=== PATIENT | female | born 1970 | race Caucasian/White ===

== ENCOUNTER 2025-01-18 08:45 | Emergency (ER) | payer OTHER, SELFPAY ==
[2025-01-18] VITALS (7 sets, daily range): BP systolic 107–134; BP diastolic 64–84; BMI 25.1
[2025-01-18] MEDS: NSS 1000 IV (09:21)
[2025-01-18] MEDS: MOTRIN 600 MG PO (09:32)
[2025-01-18] MEDS: TYLENOL 1000 MG PO (09:32)
[2025-01-18 09:38] LABS: % Basophils 0.3 % (0-2); % Immature Granulocytes 0.4 % (0-0.5); % Monocytes 3.9 % (1.7-9.3); % Neutrophils 88.4 % (42.2-75.2); Absolute Lymphocytes 0.6 10^3/uL (1.2-3.4); Absolute Monocytes 0.3 10^3/uL (0.1-0.6); Hematocrit 34.5 % (37.0-47.0); Hemoglobin 11.2 g/dL (12.0-16.0); Mean Corp Hgb Conc. 32.5 g/dL (33.0-37.0); Mean Corpuscular Volume 80.2 fL (81.0-99.0); Mean Platelet Volume 9.4 fL (7.4-10.4); Nucleated Red Blood Cells % 0 %; Platelet Count 198 10^3/uL (130-400); Red Cell Dist. Width 12.9 % (11.5-14.5); White Blood Cell Count 7.9 10^3/uL (4.8-10.8)
[2025-01-18 09:42] LABS: Urine Albumin 1+ (Neg - Trace); Urine Bilirubin Negative (Negative); Urine Character Clear (Clear); Urine Color Yellow; Urine Glucose Negative (Negative); Urine Ketone Negative (Negative); Urine Leukocyte 1+ (Negative); Urine Nitrite Negative (Negative); Urine Occult Blood 4+ (Negative); Urine Specific Gravity 1.015 (<1.030); Urine Urobilinogen Negative (Neg - 1+)
[2025-01-18 09:54] LABS: Lactic Acid 1.4 mmol/L (0.7-2.0); Urine Bacteria Few (Negative)
[2025-01-18 09:55] LABS: COVID-19 Antigen Negative (Negative)
[2025-01-18 09:56] LABS: ALT (SGPT) 26 U/L (0-35); AST (SGOT) 33 U/L (14-36); Albumin 4.5 g/dl (3.5-5.0); Alkaline Phosphatase 87 U/L (38-126); Blood Urea Nitrogen 12 mg/dl (7-17); Calcium 9.1 mg/dl (8.4-10.2); Carbon Dioxide 24 mmol/L (22-30); Chloride 105 mmol/L (98-107); Estimated Creatinine Clearance 69 ml/min; Glucose 146 mg/dl (70-99); Potassium 4.1 mmol/L (3.5-5.1); Sodium 137 mmol/L (135-145); Total Bilirubin 0.5 mg/dl (0.2-1.3); Total Protein 7.2 g/dl (6.3-8.2); eGFR > 60.00
--- NOTE | 2025-01-18 11:15 | ED.GENMED ---
History of Present Illness
<Evans Naranjo PA-C - Last Filed: 01/18/25 14:44>
General
Chief Complaint: Fever
Time Seen by Provider: 01/18/25 09:03
History of Present Illness
History of Present Illness:
54-year-old female presents the emergency department for evaluation of fever, coughing, and lower abdominal cramping after a uterine ablation procedure that was performed 3 days ago. Fevers began the day following the procedure. She denies any
shortness of breath, URI symptoms, or vaginal purulent discharge. Denies dysuria or hematuria. Has clear community vaginal discharge that is expected after this procedure.
Review of Systems
<Evans Naranjo PA-C - Last Filed: 01/18/25 14:44>
Review of Systems
Allergies reviewed?: Yes
All Other Systems: ROS reviewed and negative except as documented in HPI and ROS
Phy Exam
<Evans Naranjo PA-C - Last Filed: 01/18/25 14:44>
Physical Exam
Physical Exam:
GEN: Well appearing, NAD, WDWN
Eyes: PERRLA, EOMs intact, no scleral icterus
HENT: NCAT, oral mucosa moist, no JVD, no cervical adenopathy.
Lungs: CTAB, no wheezes, rales, rhonchi, normal chest wall excursion
Cardiac: Tachycardic, regular, no M/R/G, no peripheral edema. Radial pulses 2+ bilat
Abdomen: S, NT, ND, NABS, no masses or hepatosplenomegaly
Neuro: AO x 3, no focal deficits to BUE/BLE, normal sensation throughout
MSK: No gross deformity or ecchymosis. No edema. No digital clubbing
Skin: No rashes, petechiae. Normal color, no pallor or jaundice.
Psych: Calm, cooperative, proper hygiene
Sepsis
<Evans Naranjo PA-C - Last Filed: 01/18/25 14:44>
Sepsis Screening
Sepsis Assessment: Sepsis Ruled Out
Sepsis Screen
Sepsis Screen: Sepsis Ruled Out
Date: 01/18/25
Time: 14:44
<Pietro Pardo PA-C - Last Filed: 01/21/25 08:06>
Sepsis Screen
Sepsis Screen: Sepsis Ruled Out
Date: 01/21/25
Time: 08:05
Course
<Evans Naranjo PA-C - Last Filed: 01/18/25 14:44>
Orders/Labs/Results
Orders:
Orders
01/18/25 09:07
0.9% Sodium Chloride 1000 ml [Nss] 1,000 ml IV BOLUS
01/18/25 09:22
COVID-19 Antigen Urgent
Source: Nasal Swab
Complete Blood Count/With Diff Urgent
Comprehensive Metabolic Panel Urgent
Lactic Acid Q4H
Comment: CANCEL 2nd LACTIC ACID IF 1st LACTIC ACID IS LESS THAN 2
Urinalysis Reflex To Culture Urgent
Date Specimen was Collected: 01/18/25
Time Specimen was Collected: 09:19
Urine Microscopic Reflex Cult Urgent
Blood Culture Q30M
STEVE Source: Blood/Venous
Specimen Description:
Influenza A+B Rapid Molecular Urgent
STEVE Source: Nasal Swab
Specimen Description:
Urine Culture Urgent
STEVE Source: U
Specimen Description:
Date Specimen was Collected: 01/18/25
Time Specimen was Collected: 09:19
01/18/25 09:27
Acetaminophen [Tylenol] 1,000 mg PO NOW STA
Ibuprofen [Motrin] 600 mg PO NOW STA
01/18/25 10:01
CR Chest - 2 Views Urgent
Comment:
Reason For Exam: fever
01/18/25 10:39
US Pelvis Only (non-obstetric) Urgent
Comment:
Reason For Exam: pelvic pain/fever after uterine ablation
01/18/25 14:45
Add On - Microbiology Urgent
Tests Added?: urine culture
Abnormal Lab Results
01/18/25
09:22
Hgb 11.2 L g/dL
(12.0-16.0)
Hct 34.5 L %
(37.0-47.0)
MCV 80.2 L fL
(81.0-99.0)
MCH 26.0 L pg
(27.0-31.0)
MCHC 32.5 L g/dL
(33.0-37.0)
Absolute Neuts (auto) 7.0 H 10^3/uL
(1.4-6.5)
Absolute Lymphs (auto) 0.6 L 10^3/uL
(1.2-3.4)
Neutrophils % 88.4 H %
(42.2-75.2)
Lymphocytes % 7.0 L %
(20.5-51.1)
Glucose 146 H mg/dl
(70-99)
Ur Occult Blood Reflex 4+ A
(Negative)
Leukocyte Esterase Rfl 1+ A
(Negative)
Urine RBC 11-15 A /HPF
(0-2)
Urine Bacteria (Reflex) Few A
(Negative)
Urine Albumin (Reflex) 1+ A
(Neg - Trace)
01/18/25 09:22
01/18/25 09:22
Vital Signs
Initial and Last Documented VS:
Initial Vital Signs
Temp Pulse Resp BP Pulse Ox
102 F H 124 16 134/84 100
01/18/25 08:50 01/18/25 08:50 01/18/25 08:50 01/18/25 08:50 01/18/25 08:50
Last Documented Vital Signs
Temp Pulse Resp BP Pulse Ox
102 F H 105 21 107/69 97
01/18/25 08:50 01/18/25 10:15 01/18/25 10:15 01/18/25 14:18 01/18/25 14:18
<Pietro Pardo PA-C - Last Filed: 01/21/25 08:06>
Orders/Labs/Results
Orders:
Orders
01/18/25 09:07
0.9% Sodium Chloride 1000 ml [Nss] 1,000 ml IV BOLUS
01/18/25 09:22
COVID-19 Antigen Urgent
Source: Nasal Swab
Complete Blood Count/With Diff Urgent
Comprehensive Metabolic Panel Urgent
Lactic Acid Q4H
Comment: CANCEL 2nd LACTIC ACID IF 1st LACTIC ACID IS LESS THAN 2
Urinalysis Reflex To Culture Urgent
Date Specimen was Collected: 01/18/25
Time Specimen was Collected: 09:19
Urine Microscopic Reflex Cult Urgent
Blood Culture Q30M
STEVE Source: Blood/Venous
Specimen Description:
Influenza A+B Rapid Molecular Urgent
STEVE Source: Nasal Swab
Specimen Description:
Urine Culture Urgent
STEVE Source: U
Specimen Description:
Date Specimen was Collected: 01/18/25
Time Specimen was Collected: 09:19
01/18/25 09:27
Acetaminophen [Tylenol] 1,000 mg PO NOW STA
Ibuprofen [Motrin] 600 mg PO NOW STA
01/18/25 10:01
CR Chest - 2 Views Urgent
Comment:
Reason For Exam: fever
01/18/25 10:39
US Pelvis Only (non-obstetric) Urgent
Comment:
Reason For Exam: pelvic pain/fever after uterine ablation
01/18/25 14:45
Add On - Microbiology Urgent
Tests Added?: urine culture
Abnormal Lab Results
01/18/25
09:22
Hgb 11.2 L g/dL
(12.0-16.0)
Hct 34.5 L %
(37.0-47.0)
MCV 80.2 L fL
(81.0-99.0)
MCH 26.0 L pg
(27.0-31.0)
MCHC 32.5 L g/dL
(33.0-37.0)
Absolute Neuts (auto) 7.0 H 10^3/uL
(1.4-6.5)
Absolute Lymphs (auto) 0.6 L 10^3/uL
(1.2-3.4)
Neutrophils % 88.4 H %
(42.2-75.2)
Lymphocytes % 7.0 L %
(20.5-51.1)
Glucose 146 H mg/dl
(70-99)
Ur Occult Blood Reflex 4+ A
(Negative)
Leukocyte Esterase Rfl 1+ A
(Negative)
Urine RBC 11-15 A /HPF
(0-2)
Urine Bacteria (Reflex) Few A
(Negative)
Urine Albumin (Reflex) 1+ A
(Neg - Trace)
01/18/25 09:22
01/18/25 09:22
Vital Signs
Initial and Last Documented VS:
Initial Vital Signs
Temp Pulse Resp BP Pulse Ox
102 F H 124 16 134/84 100
01/18/25 08:50 01/18/25 08:50 01/18/25 08:50 01/18/25 08:50 01/18/25 08:50
Last Documented Vital Signs
Temp Pulse Resp BP Pulse Ox
102 F H 105 21 107/69 97
01/18/25 08:50 01/18/25 10:15 01/18/25 10:15 01/18/25 14:18 01/18/25 14:18
<Evans Naranjo PA-C - Last Filed: 01/18/25 14:44>
MDM/Problems Addressed
MDM/Problems Addressed:
Broad medical workup was unremarkable, no evidence of pelvic fluid collection or endometrial thickening. She has no significant abdominal tenderness to suggest this may be an endometritis. Lungs are clear and there is no chest x-ray finding of
aspiration pneumonia. She was prescribed doxycycline by her [facility] [employer] and will continue this with blood cultures pending. I did contact the [facility] office and left a message however did not receive a call back at the time of patient disposition
<Evans Naranjo PA-C - Last Filed: 01/18/25 14:44>
*Pulse Oximetry
SaO2: 97
Oxygen Mode of Delivery: Room air
*Critical Care Note
Total Time (30-74mins, 75-104mins- exclusive of procedures): Not Applicable
<Pietro Pardo PA-C - Last Filed: 01/21/25 08:06>
Update Note
Update Note:
8:06 AM January 21. Patient's blood cultures positive for E. coli. Spoke with patient on the telephone and advised she come back here soon as possible for reevaluation
ED Attending Note
<Evans Naranjo PA-C - Last Filed: 01/18/25 14:44>
-
Portions of this chart may have been created with voice recognition software.� Occasional wrong word or��sound alike� substitutions may have occurred due to the inherent limitations of voice recognition software.
Discharge Plan
Departure
Patient Disposition: Home (Routine Discharge)
Date of Disposition: 01/18/25
Time of Disposition: 14:42
Patient with high blood pressure during this ER visit?: No
Discharge Problem:
Fever
Instructions: Fever, Adult (DC)
Referrals:
Berta Wiggins MD [Family Provider, Family Practice]
Activity Restrictions/Additional Instructions:
Follow up with your OBGYN
We will contact you if blood cultures are positive
Continue doxycycline in the meantime
We will contact you if there are any further instructions from your OBGYN
Interventions
Interventions:
*Risk Screen - Suicide Last Done: 01/18/25 08:50
*General Assessment Last Done: 01/18/25 09:03
*Neglect/Abuse Screening Last Done: 01/18/25 08:50
*ED- Fall Risk Assessment Last Done: 01/18/25 09:03
*ED COVID-19 Vaccine History Last Done: 01/18/25 09:03
*Nursing Disposition Last Done: 01/18/25 14:52
ED- Neurological Assessment Last Done: 01/18/25 09:03
ED-Skin Assessment Last Done: 01/18/25 09:06
Discharge Date and Time
Discharge Date/Time: 01/18/25 14:53
Print Language: DIVEHI
== END 2025-01-18 14:53 | disposition home or self-care (01) ==
LOC: EMR 08:45
PROVIDERS: Physician Assistant; EMERGENCY PHYSICIAN Emergency Medicine; FAMILY PHYSICIAN Family Medicine
DX: R50.9 Fever, unspecified (principal); Z11.52 Encounter for screening for COVID-19; B96.20 Unspecified Escherichia coli [E. coli] as the cause of diseases classified elsewhere
CPT/HCPCS: 99285; 96360; 71046; 76856; 80053; 81003; 81015; 83605; 85025; 87040; 87077; 87086; 87154; 87205; 87502; 87811

== ENCOUNTER 2025-01-21 15:42 | Inpatient (IN) | payer OTHER, SELFPAY ==
[2025-01-21 10:53] VITALS: BP 127/91
--- NOTE | 2025-01-21 12:54 | ED.GENMED ---
History of Present Illness
General
Chief Complaint: Abdominal Symptoms
Source: patient
Time Seen by Provider: 01/21/25 12:19
History of Present Illness
History of Present Illness:
Note:
CHIEF COMPLAINT(S)
Persistent fever and dizziness.
HISTORY OF PRESENT ILLNESS
The patient is a 54-year-old female who presents with persistent fever and dizziness. She has a history of fibroids and underwent a KACY procedure that was unsuccessful, followed by a NovaSure Endometrial Ablation procedure last Tuesday. These
procedures were accompanied by the placement of a Mirena IUD. The patient reports feeling unwell since the procedures, attributing her symptoms initially to low iron levels. On , she noted a temperature of 103�F, prompting a call to her
physician, who initially thought the fever might be viral. However, another doctor expressed concern, leading to an ER visit. Blood cultures revealed E. coli, and the patient was started on doxycycline about 18 hours prior to this presentation. The
patient reports that she experiences increased dizziness and fever when active but feels better when resting. Currently, her temperature is 99.4�F. She reports some vaginal pain on the left side and has no urinary symptoms.
REVIEW OF SYSTEMS
- Constitutional: Fever, dizziness, fatigue.
- Gastrointestinal: Abdominal discomfort.
- Urogenital: Vaginal pain on the left side.
- Neurologic: Dizziness upon standing.
PHYSICAL EXAM
- General: Alert and oriented.
- Respiratory: No respiratory distress.
- Cardiovascular: Regular heart rate and rhythm, no murmurs.
- Gastrointestinal: Soft abdomen, minimal tenderness in the left lower quadrant, no distension. no cva TTP.wounds well healed
- Extremities: No edema.
- Neurologic: Cranial nerves intact, no focal motor deficits.
DIFFERENTIAL DIAGNOSIS
The Differential Diagnosis includes, in no particular order and is not limited to:
1. Post-procedural infection
2. Urinary tract infection
3. Endometritis
4. Pelvic abscess
5. Sepsis
6. Pyelonephritis
7. Bacteremia
8. Gynecological infection due to IUD placement
9. Gastrointestinal infection
10. Viral infection
CARE-UPDATE
01/21/25 - 15:[address] scan shows an air-fluid level in the uterus; will arrange for consultation with gynecology for further evaluation and management.
Disposition:
SUMMARY OF ENCOUNTER
The patient, a 54-year-old female, presented to the emergency department with persistent fever and dizziness post-procedures for fibroids, including a NovaSure Endometrial Ablation and Mirena IUD placement. Initial symptoms were attributed to low
iron; however, persistency and a recorded fever of 103�F prompted further evaluation. An ER visit revealed E. coli bacteremia, and the patient was started on doxycycline. Her current fever at presentation was 99.4�F, with increased dizziness upon
activity. Blood cultures confirmed E. coli, and differential diagnoses of post-procedural infection and endometritis were considered. Due to these findings and symptoms, she was managed with IV antibiotics and admitted for further care.
DISPOSITION
The patient was admitted for further management, including IV antibiotics, due to the confirmed E. coli bacteremia and potential complications like endometritis.
INDEPENDENT REVIEW OF LABS AND INTERPRETATION OF TESTS
My independent review of the blood cultures is positive for E. coli. A complete blood count shows a white blood cell count within normal limits at 7.5, slight anemia with a hemoglobin level of 10.5, and normal platelets. Chemistry panel is normal,
except for a mild elevation in liver function tests. No right upper quadrant tenderness is noted.
ADDITIONAL TESTING AND IMAGING CONSIDERED
Consultation with gynecology for evaluation and management of possible endometritis or pelvic abscess due to air-fluid levels in the uterus seen on prior CT scan.
MEDICAL DECISION MAKING
1. Number & Complexity of Problems: Chronic conditions affecting care include post-procedural status following NovaSure Endometrial Ablation and IUD placement. Differential diagnoses considered include post-procedural infection, endometritis, and
potential pelvic abscess.
2. Data Reviewed:
- Category 1: Reviewed blood cultures positive for E. coli, CBC showing anemia, and labs indicating mild liver function test elevation.
- Category 2: Prior records reviewed, including positive blood cultures from January 18.
- Category 3: Discussion occurred with hospitals and gynecology for comprehensive management of the suspected infection.
PATHOLOGIES TO CONSIDER
- Sepsis due to E. coli bacteremia.
- Endometritis or pelvic abscess post-procedural.
- Gynecological infection due to recent IUD placement.
Phy Exam
Physical Exam
Physical Exam:
.
Course
Orders/Labs/Results
Orders:
Orders
01/21/25 10:57
EKG [Electrocardiogram (*1)] Urgent
Reason for Study: Vertigo / Dizzy
EKG- Treatment ONCE
01/21/25 12:53
Complete Blood Count/With Diff Urgent
Comprehensive Metabolic Panel Urgent
Lactic Acid Urgent
Lipase Urgent
Urinalysis Reflex To Culture Urgent
Date Specimen was Collected: 01/21/25
Time Specimen was Collected: 12:26
Urine Microscopic Reflex Cult Urgent
Blood Culture Q30M
STEVE Source: Blood/Venous
Specimen Description:
01/21/25 12:54
CT Abd/pelvis W Iv Cont Urgent
Comment:
Reason For Exam: abd pain, E.Coli in blood, recent scraper burrer procedure
01/21/25 12:57
Blood Culture Q30M
STEVE Source: Blood/Venous
Specimen Description:
01/21/25 14:44
Piperacillin/Tazo 3.375 Gram [Zosyn] 3.375 gram in 50 ml IV NOW
Abnormal Lab Results
01/21/25
12:53
RBC 3.99 L 10^6/uL
(4.20-5.40)
Hgb 10.5 L g/dL
(12.0-16.0)
Hct 31.7 L %
(37.0-47.0)
MCV 79.4 L fL
(81.0-99.0)
MCH 26.3 L pg
(27.0-31.0)
Chloride 110 H mmol/L
(98-107)
AST 54 H U/L
(14-36)
ALT 73 H U/L
(0-35)
Alkaline Phosphatase 135 H U/L
(38-126)
Ur Occult Blood Reflex 2+ A
(Negative)
01/21/25 12:53
01/21/25 12:53
Vital Signs
Initial and Last Documented VS:
Initial Vital Signs
Temp Pulse Resp BP Pulse Ox
98.4 F 96 18 127/91 99
01/21/25 10:53 01/21/25 10:53 01/21/25 10:53 01/21/25 10:53 01/21/25 10:53
Last Documented Vital Signs
Temp Pulse Resp BP Pulse Ox
98.8 F 87 18 136/84 100
01/21/25 14:23 01/21/25 14:23 01/21/25 14:23 01/21/25 14:23 01/21/25 14:23
*Pulse Oximetry
SaO2: 99
Oxygen Mode of Delivery: Room air
Patient hypoxic: no
*Critical Care Note
Total Time (30-74mins, 75-104mins- exclusive of procedures): Not Applicable
ED Attending Note
-
Portions of this chart may have been created with voice recognition software.� Occasional wrong word or��sound alike� substitutions may have occurred due to the inherent limitations of voice recognition software.
Discharge Plan
Departure
Patient Disposition: Admit
Date of Disposition: 01/21/25
Time of Disposition: 15:06
Admit to: Med/Surg
Presentation/result/management discussed w/ accepting MD/DO: Hospitalist
Discharge Problem:
E coli bacteremia, Acute endometritis
Referrals:
Berta Wiggins MD [Family Provider, [facility]]
Interventions
Interventions:
*Risk Screen - Suicide Last Done: 01/21/25 10:53
*General Assessment Last Done: 01/21/25 10:53
*Neglect/Abuse Screening Last Done: 01/21/25 10:53
RJ-Lwbday-Nyygsurrvm Assessment Last Done: 01/21/25 13:02
Discharge Date and Time
Print Language: LAO
[2025-01-21 13:03] VITALS: BMI 27.5
[2025-01-21 13:07] LABS: % Basophils 0.4 % (0-2); % Immature Granulocytes 0.5 % (0-0.5); % Lymphocytes 28.1 % (20.5-51.1); % Monocytes 8.1 % (1.7-9.3); % Neutrophils 60.9 % (42.2-75.2); Absolute Eosinophils 0.2 10^3/uL (0-0.7); Absolute Lymphocytes 2.1 10^3/uL (1.2-3.4); Absolute Monocytes 0.6 10^3/uL (0.1-0.6); Absolute Neutrophils 4.6 10^3/uL (1.4-6.5); Hematocrit 31.7 % (37.0-47.0); Hemoglobin 10.5 g/dL (12.0-16.0); Mean Corp Hgb Conc. 33.1 g/dL (33.0-37.0); Mean Corpuscular Hgb 26.3 pg (27.0-31.0); Mean Corpuscular Volume 79.4 fL (81.0-99.0); Mean Platelet Volume 9.3 fL (7.4-10.4); Nucleated Red Blood Cells % 0 %; Platelet Count 217 10^3/uL (130-400); Red Blood Cell Count 3.99 10^6/uL (4.20-5.40); Red Cell Dist. Width 12.8 % (11.5-14.5); White Blood Cell Count 7.5 10^3/uL (4.8-10.8)
[2025-01-21 13:08] LABS: Urine Albumin Negative (Neg - Trace); Urine Bilirubin Negative (Negative); Urine Character Clear (Clear); Urine Color Yellow; Urine Glucose Negative (Negative); Urine Ketone Negative (Negative); Urine Leukocyte Negative (Negative); Urine Nitrite Negative (Negative); Urine Occult Blood 2+ (Negative); Urine Urobilinogen Negative (Neg - 1+)
[2025-01-21 13:28] LABS: ALT (SGPT) 73 U/L (0-35); AST (SGOT) 54 U/L (14-36); Albumin 4.2 g/dl (3.5-5.0); Alkaline Phosphatase 135 U/L (38-126); Blood Urea Nitrogen 9 mg/dl (7-17); Calcium 9.4 mg/dl (8.4-10.2); Carbon Dioxide 25 mmol/L (22-30); Chloride 110 mmol/L (98-107); Estimated Creatinine Clearance 89 ml/min; Glucose 97 mg/dl (70-99); Lipase 183 U/L (23-300); Potassium 4.1 mmol/L (3.5-5.1); Sodium 144 mmol/L (135-145); Total Bilirubin 0.3 mg/dl (0.2-1.3); Total Protein 6.9 g/dl (6.3-8.2); eGFR > 60.00
[2025-01-21 13:30] LABS: Lactic Acid 0.8 mmol/L (0.7-2.0)
[2025-01-21 13:37] LABS: Urine Amorphous Seen; Urine Squamous Cell 0-2 /LPF (Few)
[2025-01-21 13:38] LABS: Urine Red Blood Cell 0-2 /HPF (0-2); Urine White Cell 0-2 /HPF (0-5)
[2025-01-21 14:23] VITALS: BP 136/84
[2025-01-21] MEDS: ZOSYN 50 IV ×2 (15:09→19:48)
--- NOTE | 2025-01-21 15:19 | HPS.HSE ---
Family Physician
-
Family Physician: Berta Wiggins
Chief Complaint
-
Bacteremia
History of Present Illness
54 years old female who presented to the hospital on January 26 with fever abdominal pain. She was diagnosed with endometritis and was advised to continue taking oral doxycycline she was given an outpatient setting. Blood culture drawn at the time.
Blood culture came back positive on January 21 with E. coli. Patient was called again to be admitted. Patient reported that her abdominal pain still present but less severe. She reported low-grade temperature at home around 99-100 but overall
improvement then few days ago. In the ER, she did not have fever or leukocytosis.
Patient has had 2 radiofrequency ablation of her uterine fibroid, 1 in September and few days ago at [facility]. Patient reported that she also received IUD for dysfunctional uterine bleeding.
Medical History
Past Medical History
Past Medical History: Reports Other (Uterine fibroid, dysfunctional uterine bleeding)
Past Surgical History: Reports Other (Recent ablation of uterine fibroid)
Social History
Tobacco: Non-smoker
Alcohol: None
Drug: None
Personal:
Living: With Family
Employment: Not Employed
Family History
Family History: Not pertinent
Allergies / Home Medications
Allergies reflects when Allergies were last updated in [employer].
Home Medications with original date entered in [employer]
Allergy/Medication List:
Allergies
Allergy/AdvReac Type Severity Reaction Status Date / Time
No Known Allergies Allergy Verified 01/18/25 08:48
Home Medications
acetaminophen 500 mg tablet (Tylenol Extra Strength) 500 mg PO Q6H PRN fever 01/21/25
cholecalciferol (vitamin D3) 1 gummy PO DAILYPRN PRN vitamin 01/21/25
creatine monohydrate 5,000 mg oral powder packet 5,000 mg PO DAILY 01/21/25
cyanocobalamin (vitamin B-12) 1 gummy PO DAILYPRN PRN vitamin 01/21/25
doxycycline monohydrate 100 mg capsule 100 mg PO BID 01/21/25
ibuprofen 200 mg tablet (Advil) 400 mg PO Q6H PRN fever 01/21/25
psyllium husk 3.4 gram/5.4 gram oral powder 1 tbsp PO DAILY PRN constipation 01/21/25
therapeutic multivitamin 1 tab PO DAILY PRN vitamin 01/21/25
Review of Systems
-
History Source: Patient
A 12 point ROS was completed and negative except as noted: Yes
Constitutional: Reports Fever
EENT: Denies Sore Throat
Respiratory: Denies Cough
Cardiac: Denies Chest Pain
Abdomen/GI: Reports Abdominal Pain
: Denies Dysuria, Difficulty Voiding or Bleeding
Musculoskeletal: Denies Joint Pain or Joint Swelling
Skin: Denies Rash
Neurological: Denies Numbness
Endocrine: Denies Temp Intolerance
Hematologic/Lymphatic: Denies Bruising
Psych: Denies Panic Disorder
Physical Exam
Vital Signs
Vital Signs
Temp Pulse Resp BP Pulse Ox
98.8 F 87 18 136/84 100
01/21/25 14:23 01/21/25 14:23 01/21/25 14:23 01/21/25 14:23 01/21/25 14:23
Physical Exam
General: Well Nourished, No Apparent Distress, Comfortable and Conversant
HEENT: NormoCephalic, Anicteric and Moist mucous membranes
Respiratory: No Wheezes
Cardiac: S1/S2
GI: Soft
Genito-urinary: Clear Urine
Musculoskeletal: No Clubbing, No Cyanosis and No Edema
Skin: Warm and Dry
Neuro: AO x 3 and Nonfocal/grossly intact
Psych: Calm and Intact Judgment/Insight
Laboratory Results
-
01/21/25 12:53
01/21/25 12:53
Laboratory Results
Lactic Acid 0.8 mmol/L (0.7-2.0) 01/21/25 12:53
Total Bilirubin 0.3 mg/dl (0.2-1.3) 01/21/25 12:53
AST 54 U/L (14-36) H 01/21/25 12:53
ALT 73 U/L (0-35) H 01/21/25 12:53
Alkaline Phosphatase 135 U/L (38-126) H 01/21/25 12:53
Lipase 183 U/L (23-300) 01/21/25 12:53
Impression/Plan
-
54 years old female presented with bacteremia
#E. coli bacteremia
Admit the patient to the hospital. Source of from uterine infection, to repeat blood culture. Start the patient on the intravenous Zosyn. Await susceptibility of culture of January 18.
Appreciate ID help
#Acute infectious endometritis
Patient reported clinical improvement since starting oral antibiotic. Less abdominal pain. No uterine discharge or bleeding.
Discussed with ELECTRONIC DESIGN ENGINEER bedside, will perform pelvic exam and decision to remove IUD pending decision per ELECTRONIC DESIGN ENGINEER
Continue with Tylenol for pain, low-dose tramadol for severe pain
She is not toxic appearing. No fever. No leukocytosis
# Dysfunctional uterine bleeding. Currently no vaginal bleeding.
# DVT prophylaxis
Total time spent to see the patient, examine the patient, review data and lab result, discuss treatment plan with patient, ELECTRONIC DESIGN ENGINEER doctor, ID doctor, ER doctor, nursing staff around 75 minutes
[2025-01-21 17:51] VITALS: BP 116/78; BMI 27.2
[2025-01-21] MEDS: VIBRAMYCIN 100 MG PO (18:00)
--- NOTE | 2025-01-21 18:17 | PTCARENOTE ---
pt presented from ED via stretcher. pt is AAO*3, Vss, room air. pt is oriented to the room. call soler within the reach. family at the bedside updated.
[2025-01-21] MEDS: HEPARIN 5000 UNITS SC (19:47)
--- NOTE | 2025-01-21 23:06 | CON.MD ---
Consultation - Medical
-
54yo who was called into the ER due to blood cx showing +E.coli. She states that for the past 5 years she has been experiencing heavy vaginal bleeding, She had IUD placed 2 years ago but continued to have heavy periods. Since 05/2024 she had
essentially constant bleeding. She has known fibroids and after meeting with her WOOD TURNING LATHE OPERATOR at [place], they decided to proceed with hysterectomy. The surgery however wasnt scheduled for another 4 months and in the interim she started to look for
alternative mgmt options. She learnt about the ACESSA procedure and was referred to a WOOD TURNING LATHE OPERATOR at [facility] for this in 09/2024. 3 weeks later she had an episode of intense pain and expelled her IUD. She unfortunately still continued to have heavy bleeding
despite the procedure. So her physician at [place] took her back to the OR last week on 01/15/25 and performed a Novasure with placement of an IUD. Two days later on 01/17 she had a fever of 103. She called her doctor who started her on doxycycline
and told her if she continues to have fever she should present to the ER. She continued to have a fever the next day so presented to . Here a pelvic US was performed and blood cx were collected and she was d/c home. However when cx results
returned today showing E. Coli, she was called back in for treatment.
She currently denies further fevers. No n/v/f/c. No UTI sx. Has been experiencing a small amount of thin bloody/pink drainage. a little pain in the left vagina and mild cramping which is not new for her. Tolerating a regular diet. normal bowel and
bladder function.
PMHx: AUB, fibroids
PSHx: ACESSA radiofrequency ablation 09/2024, Novasure w/ IUD placement 12/2024
FHx: NC
SHx: Neg x3
Meds: Doxycycline.
All: NKDA
ROS: per HPI
Vitals, Labs, Imaging below
Gen: nad well appearing
Abd: soft, nt, nd no r/g
Pelvic: no CMT, no fundal ttp, no adnexal ttp/mass.
SSE: small amount of thin non purulent appearing pink drainage in the posterior cul de sac. Strings of IUD seen.
A/P: 54yo with bacteremia, suspect post-op endometritis
1. Bacteremia
-Patient placed on Zosyn. doxycycline stopped
-repeat wound and Ucx collected. Vaginal culture also collected with pelvic exam
-ID consult placed to assist with management
2. Post-op
- d/w patient the imaging results and concern for endometritis as the source of her infection. I reviewed option of maintaining the Mirena and only removing should she not clinically improve vs removal of the IUD now. Patient states she would feel
less stressed if her IUD were removed so Mirena removed without difficulty and discarded-
-I reviewed with her as well expected discharge/bleeding after the novasure ablation- what she is experiencing now is expected.
3. pain control prn
4. regular diet.
Consultation
-
Date/Time Consultation Requested: 01/21/25
Date/Time Consultation Performed: 01/21/25 1530
Requesting Provider: Kevin
Performing Provider: Luke
Reason for Consultation: Bacteremia, concern for endometritis
Vital Signs / Labs
-
Vital Signs and Labs:
Temp Pulse Resp BP Pulse Ox
98.4 F 82 17 116/78 98
01/21/25 23:21 01/21/25 23:21 01/21/25 23:21 01/21/25 23:21 01/21/25 23:21
01/21/25 12:53
01/21/25 12:53
01/21/25
12:53
RBC 3.99 L
Hgb 10.5 L
Hct 31.7 L
MCV 79.4 L
MCH 26.3 L
Chloride 110 H
AST 54 H
ALT 73 H
Alkaline Phosphatase 135 H
Ur Occult Blood Reflex 2+ A
Blood Cx 6/20: E. coli
Imaging Data
-
Pelvic US 01/17: The uterus is anteverted and measures 9.2 x 6.0 x 5.1 cm. There is focal myometrial mass to the fundus measuring 4.8 x 3.9 x 5.1 cm, most likely fibroid. Along the anterior aspect of the cervix, there is ovoid nodule measuring 1.1 x
1.0 x 1.1 cm which most likely represents incidental nabothian cyst. There is expected through transmission.
The endometrial echo complex measures 0.6 cm in thickness and shows no focal abnormalities. Intrauterine device is seen in expected position in the endometrial cavity.
The right ovary measures 2.2 x 1.7 x 2.1 cm with a volume of 4.1 cc.
The left ovary measures 2.3 x 1.3 x 2.5 cm with a volume of 3.9 cc.
No abnormal ovarian or adnexal lesions. There is no free fluid in the pelvis.
CT A/P 01/21:
Pelvis:There is a low-attenuation distention of the endometrial cavity measuring up to 3 cm. Small lucent foci of gas are demonstrated within the endometrial canal as well as the endocervical canal. Superimposed infection/endometritis to be
excluded. There is an intrauterine contraceptive device in place. Anterior/right limb of the device demonstrates slight penetration into the myometrial wall by approximately 6 mm.
Left uterine body 2.5 cm intramural fibroid with a submucosal component.
No free pelvic fluid.
The adnexal regions are unremarkable.
No adenopathy.
Unremarkable appearance of the urinary bladder.
IMPRESSION:
Intrauterine contraceptive device in place. Endometrial thickening with small foci of gas noted within the endometrial canal as well as endocervical canal. Likely reflecting endometritis; although possibly noninfectious (foreign body reaction to
IUD), given the recent IUD insertion and bacteremia, infectious endometritis is felt to be more likely.
No ascites. No focal collection or pelvic abscess.
2.5 cm left uterine body intramural fibroid with submucosal component.
[2025-01-21 23:21] VITALS: BP 116/78
[2025-01-22] MEDS: ZOSYN 50 IV ×4 (02:05→19:53)
[2025-01-22 07:35] VITALS: BP 121/82
[2025-01-22] MEDS: HEPARIN 5000 UNITS SC ×2 (08:37→19:53)
--- NOTE | 2025-01-22 09:08 | W.PN.HOSP.TC ---
Today's Communication/Plan
-
MiraLAX PRN
Check iron level
Assessment / Plan
Assessment / Plan
Physical Exam
General: Well Nourished, No Apparent Distress, Comfortable and Conversant
HEENT: NormoCephalic, Anicteric and Moist mucous membranes
Respiratory: No Wheezes
Cardiac: S1/S2
GI: Soft
Genito-urinary: Clear Urine
Musculoskeletal: No Clubbing, No Cyanosis and No Edema
Skin: Warm and Dry
Neuro: AO x 3 and Nonfocal/grossly intact
Psych: Calm and Intact Judgment/Insight
54 years old female presented with bacteremia
#E. coli bacteremia
Source of from uterine infection, repeat blood culture 01/21. Start the patient on the intravenous Zosyn. Await susceptibility of culture of January 18.
Appreciate ID help
#Acute infectious endometritis related to recent fibroid ablation procedure done by Dr Paula Smith
Per BALL HOLDER doctor: no CMT on pelvic exam, kept IUD
patient is feeling better, no foul smelling vaginal discharge
Much less abdominal pain
No fevers
Continue with Tylenol for pain, low-dose tramadol for severe pain
She is not toxic appearing. No fever. No leukocytosis
# Dysfunctional uterine bleeding. Currently no vaginal bleeding.
# acute on chronic blood loss anemia due to vagila bleeding
Recheck iron level
# constipation, give MiraLAX PRN
# DVT prophylaxis
Total time spent to see the patient, examine the patient, review data and lab result, discuss treatment plan with patient,nursing staff around 55 minutes
Anticipated Discharge: > 48 hours
Subjective/Interval History
-
Date of Service: January 22, 2025
She is feeling better
No fevers
No sob
No chest pain
Objective Data
-
Vital Signs:
Vital Signs
Temp Pulse Resp BP Pulse Ox
98.3 F 91 16 121/82 98
01/22/25 07:35 01/22/25 07:35 01/22/25 07:35 01/22/25 07:35 01/22/25 07:35
I&O
01/21/25 01/22/25 01/23/25
06:59 06:59 06:59
Intake Total 340 / 340
Balance 340 / 340
--- NOTE | 2025-01-22 11:22 | CM ---
Patient seen bedside, initial assessment completed. Patient is a 54 year old female who presented to the hospital with fever abdominal pain.
Patient resides w/ son in a 2STH, 3 steps to enter the home. Patient is independent in all areas, no DME. OP therapy in the past.
Address, point of contact and insurance verified
PCP: Berta Wgigins
Pharmacy: [facility]
ID consulted
Plan: Home, no needs likely
[2025-01-22 12:01] LABS: Iron 38 ug/dl (37-170)
[2025-01-22 12:11] LABS: Percent Saturation 8 % (20-50); Total Iron Binding Capacity 442 ug/dl (265-497)
[2025-01-22 12:38] LABS: Ferritin 32.3 ng/ml (11.1-264.0)
--- NOTE | 2025-01-22 15:16 | W.PN.OBG.DWH ---
Today's Communication / Plan
-
continue iv abx as per ID
mgmt of abn ut bleeding, fibroids reviewed with pt and family
Assessment/Plan
-
endometritis
bl cx positive for E Coli
Subjective Data
-
no complaints, denies pain, thin brownish discharge
Objective Data
-
Laboratory Results
01/21/25 12:53
01/21/25 12:53
Vital Signs
Temp Pulse Resp BP Pulse Ox
98.3 F 91 16 121/82 98
01/22/25 07:35 01/22/25 07:35 01/22/25 07:35 01/22/25 07:35 01/22/25 07:35
abd +bs soft, nt
ext nt
[2025-01-22 15:20] VITALS: BP 118/80
--- NOTE | 2025-01-22 19:22 | CON.ID ---
Consultation
-
Date/Time Consultation Requested: December
Date/Time Consultation Performed: December
Requesting Provider: Dr King
Performing Provider: Tamela Anne MD
Reason for Consultation: bactermia
Chief Complaint / Past History
Chief Complaint
The patient has a very complicated history of endometriosis with multiple ablations in recent months in the setting of dysfunctional uterine bleeding in a perimenopausal woman.Bacteremia with E.coli
History of Present Illness
The patient was evaluated in the emergency department where cultures were performed including blood cultures. The patient was discharged but was called back due to positive blood culture with E. coli.
The patient was evaluated by gynecology on consultation and empiric antibiotics were started with piperacillin/tazobactam for pansensitive E. coli bacteremia.The pain is largely resolved and the patient is afebrile without leukocytosis and minimal
vaginal discharge without bleeding or hemorrhage IUD placement was also attempted in an effort to discourage uterine bleeding but IUD has currently been removed with patient currently improved at this time
Past History
Past Medical History: Other (Unremarkable)
Past Surgical History: None (Ablation of uterine fibroid)
Allergy History:
No Known Allergies Allergy (Verified 01/18/25 08:48)
Medications Reviewed: Yes
Current Antibiotics:
Piperacillin/tazobactam
Social History
Tobacco: Non-Smoker
Alcohol: None
Drug: None
Personal:
Living: With Family
Employment: Not Employed
Family History
Family History: Not Pertinent
Review of Systems
Review of Systems
General: Fever and Other (Fatigue)
Gasteroenterology: Other (Abdominal discomfort)
Genital / Urological: Other (Vaginal pain on the left side)
Endocrine: Fatigue
All systems: All other systems were reviewed and were negative
Vital Signs
Temp Pulse Resp BP Pulse Ox
98.7 F 107 18 118/80 100
01/22/25 15:20 01/22/25 15:20 01/22/25 15:20 01/22/25 15:20 01/22/25 15:20
Physical Exam
Physical Exam
Constitutional: No Acute Distress, Well Developed, Comfortable and Non-toxic
Head: Normocephalic
Eyes: Pupils Equal, Pupils Round, No Conjunctival Hemorrhage and Sclera Anicteric
Pharynx: Benign
Oral: No Thrush and No Ulcers
Cardiovascular: Regular Rate
Pulmonary: Clear and Non Labored
Gastrointestinal: Soft, Tender, Non Distended, Decreased Bowel Sounds, No Rebound and No Guarding
Skin: Warm and Dry
Wound: None
Neurological: Awake, Alert, Oriented and AO x 3
Psychological: Calm
Lines: PIV
Lab / Diagnostic Study Results
01/21/25 12:53
01/21/25 12:53
Abs Immat Gran (auto) 0.0 10^3/uL (0-0.05) 01/21/25 12:53
Absolute Neuts (auto) 4.6 10^3/uL (1.4-6.5) 01/21/25 12:53
Absolute Lymphs (auto) 2.1 10^3/uL (1.2-3.4) 01/21/25 12:53
Absolute Monos (auto) 0.6 10^3/uL (0.1-0.6) 01/21/25 12:53
Absolute Basos (auto) 0.0 10^3/uL (0-0.2) 01/21/25 12:53
Immature Gran % 0.5 % (0-0.5) 01/21/25 12:53
Neutrophils % 60.9 % (42.2-75.2) 01/21/25 12:53
Lymphocytes % 28.1 % (20.5-51.1) 01/21/25 12:53
Monocytes % 8.1 % (1.7-9.3) 01/21/25 12:53
Eosinophils % 2.0 % (0-6) 01/21/25 12:53
Basophils % 0.4 % (0-2) 01/21/25 12:53
Lactic Acid 0.8 mmol/L (0.7-2.0) 01/21/25 12:53
Ur Squamous Epith Cells 0-2 /LPF (Few) 01/21/25 12:53
Microbiology Results
Micro:
01/21/25 12:53 Blood Culture - Preliminary
Blood/Venous No Growth in 24 hours- Final report to follow
01/21/25 12:57 Blood Culture - Preliminary
Blood/Venous No Growth in 24 hours- Final report to follow
01/21/25 16:31 Genital Culture - Preliminary
Vagina Culture in Progress
Assessment / Plan
1.Perimenopausal woman with chronic dysfunctional uterine bleeding and multiple attempts with ablation Of endometrial thickening
2. Patient has been offered hysterectomy and currently has opted for IUD insertion and ablation with resulting discomfort but with no current bleeding
3. Patient with recent fatigue, fever, and emergency department visits with findings of E. coli bacteremia on 01/18/2025
4. Patient was admitted to hospital and started on broad-spectrum antibiotic with piperacillin/tazobactam 01/21/25
5.Repeat blood cultures were performed and currently pending
6. Gynecology consultation was called and options were discussed with patient
7. Plan to follow-up blood cultures with targeted antibiotic to be continued for 7 to 10 days in a patient without fever, leukocytosis or current symptomatology
8. Discharged to home on IV antibiotics when cultures show evidence of NGTD at 48 hours
Care Review
Plan reviewed with: Physician and Other Provider (Patient discussed with building insulation installer, Dr. Mccullough)
Total Time Spent with Patient (in minutes): 35
[2025-01-22 23:22] VITALS: BP 116/67
[2025-01-23] MEDS: ZOSYN 50 IV ×4 (02:02→19:47)
[2025-01-23 07:31] LABS: Hemoglobin 9.5 g/dL (12.0-16.0); Mean Corp Hgb Conc. 32.8 g/dL (33.0-37.0); Mean Corpuscular Hgb 25.9 pg (27.0-31.0); Mean Platelet Volume 9.1 fL (7.4-10.4); Platelet Count 239 10^3/uL (130-400); Red Blood Cell Count 3.67 10^6/uL (4.20-5.40); White Blood Cell Count 8.2 10^3/uL (4.8-10.8)
[2025-01-23 07:40] VITALS: BP 117/75
[2025-01-23 08:19] LABS: ALT (SGPT) 70 U/L (0-35); AST (SGOT) 41 U/L (14-36); Albumin 3.8 g/dl (3.5-5.0); Alkaline Phosphatase 114 U/L (38-126); Blood Urea Nitrogen 11 mg/dl (7-17); Calcium 9.1 mg/dl (8.4-10.2); Carbon Dioxide 24 mmol/L (22-30); Chloride 109 mmol/L (98-107); Estimated Creatinine Clearance 77 ml/min; Glucose 109 mg/dl (70-99); Potassium 4.3 mmol/L (3.5-5.1); Sodium 140 mmol/L (135-145); Total Bilirubin 0.3 mg/dl (0.2-1.3); Total Protein 6.5 g/dl (6.3-8.2); eGFR > 60.00
[2025-01-23] MEDS: HEPARIN 5000 UNITS SC ×2 (08:26→19:47)
--- NOTE | 2025-01-23 09:30 | W.PN.HOSP.TC ---
Today's Communication/Plan
-
IV abx
Assessment / Plan
Assessment / Plan
Physical Exam
General: Well Nourished, No Apparent Distress, Comfortable and Conversant
HEENT: NormoCephalic, Anicteric and Moist mucous membranes
Respiratory: No Wheezes
Cardiac: S1/S2
GI: Soft
Genito-urinary: Clear Urine
Musculoskeletal: No Clubbing, No Cyanosis and No Edema
Skin: Warm and Dry
Neuro: AO x 3 and Nonfocal/grossly intact
Psych: Calm and Intact Judgment/Insight
54 years old female presented with bacteremia
#E. coli bacteremia
Source of from uterine infection, repeat blood culture 01/21. Start the patient on the intravenous Zosyn. Await susceptibility of culture of January 18.
Appreciate ID help
#Acute infectious endometritis related to recent fibroid ablation procedure done by Dr Paula Smith
Per RESIDENTIAL REAL ESTATE APPRAISER doctor: no CMT on pelvic exam, kept IUD
patient is feeling better, no foul smelling vaginal discharge
Much less abdominal pain
No fevers
Continue with Tylenol for pain, low-dose tramadol for severe pain
She is not toxic appearing. No fever. No leukocytosis
# Transaminitis
Partly due to infection
Pt reports blood work showed high ALT in 06/2024, I advised her to do MRI as OP with PCP after treating this infection.
# Dysfunctional uterine bleeding. Currently no vaginal bleeding.
# acute on chronic blood loss anemia due to vagila bleeding
Recheck iron level
# constipation, give MiraLAX PRN
# DVT prophylaxis
Total time spent to see the patient, examine the patient, review data and lab result, discuss treatment plan with patient,nursing staff around 55 minutes
Anticipated Discharge: 24 - 48 hours
Subjective/Interval History
-
Date of Service: January 23, 2025
She is feeling better
No abdominal pain
Objective Data
-
Labs:
Laboratory Results
01/23/25
07:16
WBC 8.2
Hgb 9.5 L
Hct 29.0 L
Plt Count 239
Sodium 140
Potassium 4.3
Chloride 109 H
Carbon Dioxide 24
BUN 11
Creatinine 0.8
Glucose 109 H
Calcium 9.1
Total Bilirubin 0.3
AST 41 H
ALT 70 H
Alkaline Phosphatase 114
Vital Signs:
Vital Signs
Temp Pulse Resp BP Pulse Ox
97.6 F 89 18 117/75 97
01/23/25 07:40 01/23/25 07:40 01/23/25 07:40 01/23/25 07:40 01/23/25 07:40
I&O
01/22/25 01/23/25 01/24/25
06:59 06:59 06:59
Intake Total 340 / 340 1440 / 1440
Balance 340 / 340 1440 / 1440
[2025-01-23 15:23] VITALS: BP 121/83
--- NOTE | 2025-01-23 17:30 | W.PN.OBG.DWH ---
Today's Communication / Plan
-
- continue antibiotics per ID
Assessment/Plan
-
54yo with bacteremia, suspected postop endometritis
- continue antibiotics per ID
- repeat blood cultures pending. Urine culture negative
Subjective Data
-
No complaints. Reports she is feeling much better. Denies fevers/chills. Reports a small amount of brown water discharge.
Objective Data
-
Laboratory Results
01/23/25 07:16
01/23/25 07:16
Vital Signs
Temp Pulse Resp BP Pulse Ox
98.5 F 99 18 121/83 100
01/23/25 15:23 01/23/25 15:23 01/23/25 15:23 01/23/25 15:23 01/23/25 15:23
General: well appearing
Abd: soft, nontender
--- NOTE | 2025-01-23 17:38 | W.PN.ID1 ---
Date of Service
Date of Service: January 23, 2025
Today's Communication
Continue current antibiotic pending blood culture results in a.m.
Assessment / Plan
1.Perimenopausal woman with chronic dysfunctional uterine bleeding and multiple attempts with ablation of endometrial thickening
2. Patient has been offered hysterectomy and currently has opted for IUD insertion and ablation with resulting discomfort,but with no current bleeding
IUD was removed and patient has not had increased pain or bleeding at this time
She does complain of pain on the left side of her vagina and concern of possible abrasion with IUD removal
3. Patient with recent fatigue, fever, and emergency department visits with findings of E. coli bacteremia on 01/18/2025 with significant improvement at this time
4. Patient was admitted to hospital and started on broad-spectrum antibiotic with piperacillin/tazobactam 01/21/25
5.Repeat blood cultures were performed and currently With NGTD
6. Gynecology consultation was called and options were discussed with patient
7. Plan to follow-up blood cultures with targeted antibiotic to be continued for 7 to 10 days in a patient without fever, leukocytosis or current symptomatology
8. Discharge to home on IV antibiotics when cultures show evidence of NGTD at 48 hours
9.With discontinuation of Zosyn and replaced with ceftriaxone 2 g Q24 H to complete 10 days IV therapy via PICC/midline with oral metronidazole, follow-up as an outpatient with ARCHITECTURAL RENDERER
Chief Complaint
-: Bacteremia (Bacteremia with E.coli is tony sensitive with patient currently on Zosyn with patient currently afebrile/without leukocytosis)
Subjective / Review of Systems
Patient is feeling better today and is afebrile without leukocytosis and with decreased pain. There was extensive conversation about the patient's current condition and plan of care. First and foremost it is imperative to complete treatment of
current E.coli bacteremia with patient currently on Zosyn.The IUD has been removed and the patient will decide on the course of treatment for fibroid uterus/DUB after infection cleared. Patient asked me about risk of mesh present as part of past
urologic surgery and is concerned about possible infection as a result of current bacteremia. While possible, it is unlikely that this has occurred and patient was encouraged to monitor herself for pain and discomfort as well as to have evaluation
by her urologist /ARCHITECTURAL RENDERER to assess for this possibility after antibiotic course is complete.
Review of Systems: No Fever, No Chills, No Headache, No Pharyngitis, No Stiff Neck, No Swollen Lymph Nodes, No Cough, No Sputum Production, No Chest Pain, No Palpitations, Abdominal Pain, No Nausea, No Vomiting, No Diarrhea, No Dysuria, No Joint
Pain and No Skin Rash
Vital Signs / Physical Exam
Vital Signs
Vital Signs
Temp Pulse Resp BP Pulse Ox
98.5 F 99 18 121/83 100
01/23/25 15:23 01/23/25 15:23 01/23/25 15:23 01/23/25 15:23 01/23/25 15:23
Physical Exam
Constitutional: No Acute Distress, Well Developed, Comfortable and Non-toxic
Head: Normocephalic
Eyes: Pupils Equal, Pupils Round, No Conjunctival Hemorrhage and Sclera Anicteric
Oropharyngeal: Benign
Cardiovascular: Regular Rate
Pulmonary: Clear and Non Labored
Gastrointestinal: Soft, Non Tender, Non Distended, Decreased Bowel Sounds, No Rebound and No Guarding
Genito-Urinary: Suprapubic Tenderness
Skin: Warm and Dry
Wound: None
Neurological: Awake, Alert, Oriented, AO x 3 and No Motor Deficits
Psychological: Calm
Lines: PIV
Objective Data
Lab Data
Lab Results
01/23/25 07:16
01/23/25 07:16
Estimated Creat Clear 77 ml/min 01/23/25 07:16
Lactic Acid 0.8 mmol/L (0.7-2.0) 01/21/25 12:53
Total Bilirubin 0.3 mg/dl (0.2-1.3) 01/23/25 07:16
AST 41 U/L (14-36) H 01/23/25 07:16
ALT 70 U/L (0-35) H 01/23/25 07:16
Alkaline Phosphatase 114 U/L (38-126) 01/23/25 07:16
Most recent labs reviewed.
Microbiology: Report Reviewed
Micro Results:
01/21/25 16:31 Genital Culture - Preliminary
Vagina Escherichia coli
01/21/25 12:57 Blood Culture - Preliminary
Blood/Venous No Growth in 48 hours- Final report to follow
01/21/25 12:53 Blood Culture - Preliminary
Blood/Venous No Growth in 48 hours- Final report to follow
CT Scan: Report Reviewed
Care Review
Total Time Spent with Patient (in minutes): 40
[2025-01-23 23:12] VITALS: BP 111/66
[2025-01-24] MEDS: ZOSYN 50 IV ×2 (01:55→09:38)
[2025-01-24 07:30] VITALS: BP 122/87
[2025-01-24] MEDS: FLUSH (NSS) 2 FLUSH IV (09:39)
[2025-01-24] MEDS: HEPARIN 5000 UNITS SC (09:39)
--- NOTE | 2025-01-24 10:50 | W.PN.HOSP.TC ---
Addendum entered and electronically signed by Kevin King MD 01/24/25 18:18:
Addendum
Patient was evaluated by ID, request to order IV Rocephin. She received first dose without reaction. Midline was placed. Discussed with case management rn, infusion in the outpatient setting was arranged.
Patient wanted to go home if possible. She remained stable with no abdominal pain or vaginal bleeding.
Total discharge time spent to see the patient, examine the patient, review data and lab result, discuss discharge plan with patient, ID doctor, case management rn, nursing staff around 65 minutes
Original Note:
Today's Communication/Plan
-
dc planning
Assessment / Plan
Assessment / Plan
Physical Exam
General: Well Nourished, No Apparent Distress, Comfortable and Conversant
HEENT: NormoCephalic, Anicteric and Moist mucous membranes
Respiratory: No Wheezes
Cardiac: S1/S2
GI: Soft
Genito-urinary: Clear Urine
Musculoskeletal: No Clubbing, No Cyanosis and No Edema
Skin: Warm and Dry
Neuro: AO x 3 and Nonfocal/grossly intact
Psych: Calm and Intact Judgment/Insight
54 years old female presented with bacteremia
#E. coli bacteremia
Source of from uterine infection, repeat blood culture 01/21 NGTD
Uterine culture c/w E coli
d/w ID Dr Omid dc Zosyn and start Rocephin IV 2gm daily.
Appreciate ID help
#Acute infectious endometritis related to recent fibroid ablation procedure done by Dr Paula Smith
d/w ID Dr Omid dc Zosymike and start Rocephin IV 2gm daily.
Per ONLINE MERCHANDISING MANAGER doctor: no CMT on pelvic exam, kept IUD
patient is feeling better, no foul smelling vaginal discharge
No abdominal pain
No fevers
Continue with Tylenol for pain, low-dose tramadol for severe pain
She is not toxic appearing. No fever. No leukocytosis
# Transaminitis
No abdominal pain related to liver, no N/V, no jaundice, normal Bili.
Elevated liver enzymes Partly due to infection
Pt reported blood work showed high ALT in 06/2024, I advised her to do MRI as OP with PCP after treating this infection.
# Dysfunctional uterine bleeding. Currently no vaginal bleeding.
# acute on chronic blood loss anemia due to vagila bleeding
Recheck iron level, normal.
# constipation, given MiraLAX PRN
# DVT prophylaxis
Total time spent to see the patient, examine the patient, review data and lab result, discuss treatment plan with patient,nursing staff around 55 minutes
Anticipated Discharge: Today
Subjective/Interval History
-
Date of Service: January 24, 2025
No abdominal pain, no fevers
Feels much better
Objective Data
-
Vital Signs:
Vital Signs
Temp Pulse Resp BP Pulse Ox
98.1 F 111 18 122/87 97
01/24/25 07:30 01/24/25 07:30 01/24/25 07:30 01/24/25 07:30 01/24/25 08:00
I&O
01/23/25 01/24/25 01/25/25
06:59 06:59 06:59
Intake Total 1440 / 1440 1300 / 1300
Balance 1440 / 1440 1300 / 1300
--- NOTE | 2025-01-24 11:00 | CM ---
Addendum entered by Gabriela Rene 01/24/25 14:35:
Accepted by [facility] and per Gloria patient covered at 100%, [employer] Teacher on his way to teach patient and meds to be delivered. Physician updated as was nursing. CM will continue to follow for discharge planning needs.
Plan; home with IV antibiotics.
Original Note:
Patient seen at bedside on with nursing. Per ID physician patient will need IV antibiotics. CM spoke with patient and reviewed options for IV antibiotics patient requesting [facility] home infusion as 1st choice and if unable to cover her would
like [facility]. CM will send referrals to agency and await call back regarding costs. CM will continue to follow for discharge planning needs
Plan; home with IV antibiotics
--- NOTE | 2025-01-24 11:09 | W.PN.ID1 ---
Date of Service
Date of Service: January 24, 2025
Today's Communication
continue antibiotic with change to Ceftriaxone
Assessment / Plan
1.Perimenopausal woman with chronic dysfunctional uterine bleeding and multiple attempts with ablation of endometrial thickening
2. Patient has been offered hysterectomy and currently has opted for IUD insertion and ablation with resulting discomfort,but with no current bleeding
IUD was removed and patient has not had increased pain or bleeding at this time
She does complain of mild discomfort on the left side of her vagina which has lessened
3. Patient with recent fatigue, fever, and emergency department visits with findings of E. coli bacteremia on 01/18/2025 with significant improvement at this time
4. Patient was admitted to hospital and started on broad-spectrum antibiotic with piperacillin/tazobactam 01/21/25
5.Repeat blood cultures were performed and currently With NGTD at 48 hours
6. Gynecology consultation was called and options were discussed with patient
7. Plan to follow-up blood cultures with targeted antibiotic to be continued for 7 to 10 days in a patient without fever, leukocytosis or current symptomatology
8. Discharge to home on IV Ceftriaxone with cultures showing NGTD at 48 hours
9.With discontinuation of Zosyn and replaced with ceftriaxone 2 g Q24 H to complete 10 days IV therapy ( last dose ) via PICC/midline with oral metronidazole, follow-up as an outpatient with [employer]
Chief Complaint
-: Bacteremia (Bacteremia with E.coli is tony sensitive with patient currently on Zosyn with patient currently afebrile/without leukocytosis)
Subjective / Review of Systems
Patent clinically improved on broad spectrum antibiotic with repeat blood cultures with NGTD
Review of Systems: No Fever, No Chills, No Headache, No Pharyngitis, No Stiff Neck, No Swollen Lymph Nodes, No Cough, No Sputum Production, No Chest Pain, No Palpitations, No Abdominal Pain, No Nausea, No Vomiting, No Diarrhea and No Dysuria (Still
with mild pelvic discomfort and with improved left vaginal discomfort)
Vital Signs / Physical Exam
Vital Signs
Vital Signs
Temp Pulse Resp BP Pulse Ox
98.1 F 111 18 122/87 97
01/24/25 07:30 01/24/25 07:30 01/24/25 07:30 01/24/25 07:30 01/24/25 08:00
Physical Exam
Constitutional: No Acute Distress, Well Developed, Comfortable and Non-toxic
Head: Normocephalic
Eyes: Pupils Equal, Pupils Round, No Conjunctival Hemorrhage and Sclera Anicteric
Oropharyngeal: Benign
Cardiovascular: Regular Rate
Pulmonary: Clear and Non Labored
Gastrointestinal: Soft, Non Tender, Non Distended, Decreased Bowel Sounds, No Rebound and No Guarding
Skin: Warm and Dry
Wound: None
Neurological: Awake, Alert, Oriented, AO x 3 and No Motor Deficits
Psychological: Calm
Lines: PIV
Objective Data
Lab Data
Lab Results
01/23/25 07:16
01/23/25 07:16
Estimated Creat Clear 77 ml/min 01/23/25 07:16
Lactic Acid 0.8 mmol/L (0.7-2.0) 01/21/25 12:53
Total Bilirubin 0.3 mg/dl (0.2-1.3) 01/23/25 07:16
AST 41 U/L (14-36) H 01/23/25 07:16
ALT 70 U/L (0-35) H 01/23/25 07:16
Alkaline Phosphatase 114 U/L (38-126) 01/23/25 07:16
Most recent labs reviewed.
Microbiology: Report Reviewed
Micro Results:
01/21/25 16:31 Genital Culture - Final
Vagina Escherichia coli
01/21/25 12:57 Blood Culture - Preliminary
Blood/Venous No Growth in 48 hours- Final report to follow
01/21/25 12:53 Blood Culture - Preliminary
Blood/Venous No Growth in 48 hours- Final report to follow
Care Review
Plan reviewed with: Nurse and Physician (social services manager/employment evaluator/case manager)
Total Time Spent with Patient (in minutes): 45
[2025-01-24] MEDS: ROCEPHIN 2000 MG IV (13:45)
[2025-01-24] MEDS: STERILE WATER FOR INJECTION 20 ML IV (13:46)
[2025-01-24 15:32] VITALS: BP 108/68
--- NOTE | 2025-01-24 16:10 | W.DCSUMMARY ---
Discharge Summary
Discharge Data
Date of Admission: 01/21/25
Date of Discharge: 01/24/25
-
Pending Results: No
Hospital Course
54 years old female admitted with bacteremia. Patient presented to the emergency room on January 18 with fever and abdominal pain. She reported recent history of laparoscopic radiofrequency ablation procedure called Ashley. Patient had blood culture
and was discharged in stable condition. She was called back after results of blood culture showed E. coli bacteremia. Patient presented to the emergency room on January 21. She was hemodynamically stable. She did not have leukocytosis and reported
her abdominal pain was improving. Scan of the abdomen n& pelvis showed endometrial thickening with small foci of gas noted within the endometrial canal as well as endocervical canal. Likely reflecting endometritis; post IUD insertion. Patient
was evaluated by PAINTING CONTRACTOR. She had pelvic examination and did not have pelvic tenderness. IUD was kept after discussing benefits and risk with the patient and to avoid further heavy menses. She was admitted for intravenous antibiotic and was evaluated
by infectious diseases netsuite consultant. Repeat blood culture showed no growth. Genital culture showed E. coli. Patient started to improve, she did not have further abdominal pain or fevers. She remained hemodynamically stable. Patient was advised to
follow-up with her PAINTING CONTRACTOR doctor Dr Smith. ID doctor recommended to finish course of intravenous antibiotic upon discharge. Patient was discharged in a stable condition.
Discharge Plan
-
Patient Disposition: Home with Home Care
Discharge Diagnosis/Procedures: E. coli bacteremia
postop endometritis
Diet: As tolerated
Referrals:
Berta Wiggins MD [Family Provider, Family Practice] - in one to two weeks
Prescriptions:
New
ceftriaxone 2 gram Recon Soln
2,000 mg IV Q24H Qty: 6 0RF
Continued
therapeutic multivitamin Tablet
1 tab PO DAILY PRN (Reason: vitamin)
acetaminophen [Tylenol Extra Strength] 500 mg Tablet
500 mg PO Q6H PRN (Reason: fever)
ibuprofen [Advil] 200 mg Tablet
400 mg PO Q6H PRN (Reason: fever)
creatine monohydrate 5,000 mg Powder In Packet
5,000 mg PO DAILY
psyllium husk 3.4 gram/5.4 gram Powder
1 tbsp PO DAILY PRN (Reason: constipation)
cholecalciferol (vitamin D3)
1 gummy PO DAILYPRN PRN (Reason: vitamin)
cyanocobalamin (vitamin B-12)
1 gummy PO DAILYPRN PRN (Reason: vitamin)
Discontinued
doxycycline monohydrate 100 mg Capsule
100 mg PO BID
Patient Comments:
01/21/2025, filled on 01/17/2025 and instructed to take 1 capsule BID for 7 days.
Discharge Orders:
Discharge Patient (As Directed); Ordered 01/24/25
Ordered By: Kevin King
Discharge Date and Time
Discharge Date/Time: 01/24/25 17:40
Print Language: UKRAINIAN
== END 2025-01-24 17:40 | disposition home health service (06) | DRG 758 ==
LOC: 4 EAST ACU 15:42
PROVIDERS: ADMITTING PHYSICIAN Internal Medicine; CONSULT PHYSICIAN Obstetrics & Gynecology; EMERGENCY PHYSICIAN Emergency Medicine; FAMILY PHYSICIAN Family Medicine; OTHER PHYSICIAN Hospitalist
DX: N71.0 Acute inflammatory disease of uterus (principal); D62 Acute posthemorrhagic anemia; T81.49XA Infection following a procedure, other surgical site, initial encounter; R78.81 Bacteremia; K59.00 Constipation, unspecified; B96.20 Unspecified Escherichia coli [E. coli] as the cause of diseases classified elsewhere; Y83.8 Other surgical procedures as the cause of abnormal reaction of the patient, or of later complication, without mention of misadventure at the time of the procedure
CPT/HCPCS: 74177; 80053; 81003; 81015; 82728; 83540; 83550; 83605; 83690; 85025; 85027; 87040; 87070; 87077; 87186; 93005; 96374; 99285; Q9967

== ENCOUNTER → 2025-02-20 13:53 | Outpatient (REF) | payer OTHER, SELFPAY | LOC: WDC 13:53 | PROVIDERS: ATTENDING PHYSICIAN Obstetrics & Gynecology; FAMILY PHYSICIAN Family Medicine | DX: Z12.31 Encounter for screening mammogram for malignant neoplasm of breast (principal) | CPT/HCPCS: 77063; 77067 ==

== ENCOUNTER → 2025-03-11 10:14 | Outpatient (REF) | payer OTHER, SELFPAY | LOC: WDC 10:14 | PROVIDERS: ATTENDING PHYSICIAN Obstetrics & Gynecology; FAMILY PHYSICIAN Family Medicine | DX: R92.8 Other abnormal and inconclusive findings on diagnostic imaging of breast (principal) | CPT/HCPCS: 76642 ==

== ENCOUNTER → 2025-07-01 08:12 | Outpatient (REF) | payer OTHER, SELFPAY | LOC: HWRAD 08:12 | PROVIDERS: ATTENDING PHYSICIAN Obstetrics & Gynecology; FAMILY PHYSICIAN Family Medicine | DX: D25.1 Intramural leiomyoma of uterus (principal) | CPT/HCPCS: 76830; 76856 ==